=== PATIENT | female | born 2000 | race Caucasian/White ===

== ENCOUNTER 2018-06-07 12:38 | Emergency (ER) | payer OTHER ==
[~2018-06-07] VITALS: Ht 162.6 cm; Wt 61.4 kg
[2018-06-07] MEDS ORDERED: SERT50TA12 PO (12:46)
[2018-06-07 15:50] VITALS: BP 124/68
== END 2018-06-07 16:15 | disposition left against medical advice (07) ==
LOC: EMS 12:39
DX: R51 Headache (principal); R68.84 Jaw pain; M54.2 Cervicalgia; Z79.899 Other long term (current) drug therapy; V43.52XA Car driver injured in collision with other type car in traffic accident, initial encounter; Y93.89 Activity, other specified; Y92.410 Unspecified street and highway as the place of occurrence of the external cause; Y99.8 Other external cause status
CPT/HCPCS: 70450; 70486; 72125